=== PATIENT | female | born 2000 | race Hispanic/Latino ===

== ENCOUNTER 2023-05-14 13:23 | Emergency (ER) | payer MEDICAID ==
[~2023-05-14] VITALS: Ht 157.5 cm; Wt 77.1 kg
[2023-05-14] MEDS ORDERED: BROM118S48 PO (17:10)
[2023-05-14] MEDS ORDERED: AZIT500T2 PO (17:10)
[2023-05-14 18:05] VITALS: BP 148/62; PULSE 74; RESP 18; O2SAT 98
[2023-05-14 18:09] LABS: RAPID GROUP A STREP negative (NEGATIVE)
[2023-05-14 18:16] LABS: SARS-CoV-2, RNA, NAAT NEGATIVE SARS CoV-2 (NEGATIVE)
[2023-05-14 18:34] LABS: INFLUENZA TYPE A NEGATIVE FOR TYPE A (NEGATIVE)
[2023-05-14 18:35] LABS: INFLUENZA TYPE B NEGATIVE FOR TYPE B (NEGATIVE)
== END 2023-05-14 18:30 | disposition home or self-care (01) ==
LOC: EDH 13:23
DX: J03.90 Acute tonsillitis, unspecified (principal); R05.9 Cough, unspecified; Z20.822 Contact with and (suspected) exposure to COVID-19
CPT/HCPCS: 99283; 87635; 87880; 87804 ×2; C9803